=== PATIENT | female | born 1990 | race Caucasian/White ===

== ENCOUNTER 2018-02-12 11:11 | Outpatient (CLI) | payer MEDICAID, SELFPAY ==
[2018-02-12 11:28] VITALS: BMI 28.3
[2018-02-12 11:30] VITALS: BP 136/60; PULSE 68; RESP 16; TEMP 36.9; O2SAT 98
--- NOTE | 2018-02-12 11:34 | PC.NURSE ---
Patient here for outpatient antibiotic and steroid shot.
== END 2018-02-12 11:34 | disposition home or self-care (01) ==
PROVIDERS: PCP Family Medicine; Visit Provider Nurse Practitioner
DX: J06.9 Acute upper respiratory infection, unspecified (principal)

== ENCOUNTER → 2018-07-20 14:30 | Outpatient (CLI) | payer MEDICAID, SELFPAY ==
[2018-07-20 14:41] VITALS: BMI 32.9
== END ==
PROVIDERS: PCP Nurse Practitioner Family; Visit Provider Nurse Practitioner Family
DX: J06.9 Acute upper respiratory infection, unspecified (principal)

== ENCOUNTER → 2018-08-25 14:32 | Outpatient (CLI) | payer MEDICAID, SELFPAY ==
[2018-08-25 15:01] LABS: Free T4 (Free Thyroxine) 0.97 ng/dl (0.76-1.46)
== END ==
PROVIDERS: Visit Provider Physician Assistant
DX: R79.89 Other specified abnormal findings of blood chemistry (principal)
CPT/HCPCS: 84439

== ENCOUNTER → 2019-03-01 09:58 | Outpatient (CLI) | payer OTHER, SELFPAY ==
--- NOTE | 2019-03-01 10:05 | CA_ITS ---
APPROVED REPORT Kiln Firer: Jennifer Hendrickson RVT Laterality: Bilateral Study Quality: Excellent Indications: Near syncope when pt laughs Doppler Spectral Velocity Analysis ECA (R) 81.50/15.50 cm/s ECA (L) 82.90/15.00 cm/s dICA (R) 95.40/40.30 cm/s dICA (L) 88.70/34.70 cm/s Woody (R) 91.80/35.20 cm/s Woody (L) 77.70/33.80 cm/s pICA (R) 101.00/40.80 cm/s pICA (L) 92.80/33.60 cm/s dCCA (R) 82.30/25.40 cm/s dCCA (L) 69.20/26.70 cm/s pCCA (R) 106.40/22.10 cm/s pCCA (L) 93.00/27.60 cm/s Vert (R) 55.50/15.10 cm/s Vert (L) 52.50/17.80 cm/s ICA/CCA 1.23 ICA/CCA 1.34 Findings Study suggests normal bilateral internal carotid arteries. Antegrade flow seen bilateral vertebral arteries. Conclusion No increased velocities to suggest hemodynamically significant stenosis in either internal carotid artery. Electronically signed by : Vinayak Haney MD 03/02/2019 17:43:50
--- NOTE | 2019-03-01 10:32 | US_ITS ---
PROCEDURE: US THYROID CLINICAL INDICATION: THYROMEGALY Elevated thyroid levels COMPARISON: No exams were available for comparison FINDINGS: Right lobe: The right lobe is 3.7 x 1.1 x 2.0 cm. There is a ill-defined area of decreased echogenicity in the mid aspect of the right lobe at 1.8 x 0.9 cm. There is an internal area of coarse calcification. Left lobe: 3.6 x 0.9 x 1.2 cm with heterogeneous echogenicity Isthmus: . unremarkable Additional findings: IMPRESSION: Ill-defined hypoechoic nodule mid aspect right lobe of the thyroid gland with coarse calcification. This is not well-defined and has a suspicious appearance. Suggest repeat exam with physician supervision and fine-needle aspiration at the same setting if nodule persists and can be redemonstrated on repeat exam. Dictated by: Vinayak Haney MD 03/01/2019 19:49 Electronically signed by Vinayak Haney MD in [place] 03/01/2019 19:50
== END ==
PROVIDERS: PCP Family Medicine; Referring Provider Physician Assistant; Visit Provider Physician Assistant
DX: E01.0 Iodine-deficiency related diffuse (endemic) goiter (principal); R55 Syncope and collapse
CPT/HCPCS: 76536; 93880

== ENCOUNTER → 2019-03-07 16:37 | Outpatient (CLI) | payer OTHER, SELFPAY ==
[2019-03-07 18:37] LABS: Calcium 8.3 mg/dL (8.5-10.1); Free T4 (Free Thyroxine) 0.94 ng/dl (0.76-1.46); Thyroid Stimulating Hormone 5.49 uIU/ml (0.358-3.740)
[2019-03-10 11:06] LABS: Thyroid Peroxidase Antibodies 178 IU/mL (0-34)
[2019-03-11 08:27] LABS: Calcitonin <2.0 pg/mL (0.0-5.0); Thyroid Stimulating Immunoglob <0.10 IU/L (0.00-0.55)
== END ==
PROVIDERS: Visit Provider Otolaryngology
DX: E04.1 Nontoxic single thyroid nodule (principal)
CPT/HCPCS: 36415; 82308; 82310; 84439; 84443; 84445; 86376

== ENCOUNTER → 2019-03-09 12:41 | Outpatient (CLI) | payer OTHER, SELFPAY ==
--- NOTE | 2019-03-09 | CA_ITS ---
APPROVED REPORT EXAM: Comprehensive 2D, Doppler, and color-flow Echocardiogram Salvage Engineering Technician: Darcy Cruz RT(R) Ht: 5 ft 4 in Wt: 203lbs BSA: 1.97 BP: 112/68 mmHg Indications: ex smoker, near syncope, palpitations, fatigue, family hx of heart disease. 2D Dimensions Aortic Root 2.40 cm F: 2.7 - 3.3 Left Atrium 3.40 cm F: 2.7 - 3.8 M-Mode Dimensions RVDd 1.61 cm (0.9-2.6) LVDd 4.27 cm (3.5-5.7) LVDs 2.94 cm (3.5-5.7) IVSd 0.68 cm (0.6-1.1) PWd 0.83 cm (0.6-1.1) EF (Teich) 59.20% FS 31.10% EDV (Teich) 81.70 mL ESV (Teich) 33.30 mL LV Diastology E/A Ratio 1.29 Mitral Valve MV A Velocity 61.00 (40-130 cm/s) Left Ventricle Left atrium normal size, left ventricle is normal size, there is no concentric left ventricular hypertrophy, visually estimated ejection fraction 55% with no regional wall motion abnormality, diastolic parameters are within normal range. Right Ventricle Right atrium and right ventricular normal size and contractility. Aortic Valve Aortic valve is grossly normal. Mitral Valve Mitral valve is grossly normal, there is mild mitral regurgitation. Tricuspid Valve Tricuspid valve is grossly normal, there is mild tricuspid regurgitation. Pulmonic Valve Pulmonic valve is poorly visualized. Great Vessels Aortic root is normal size. Pericardium No significant pericardial effusion noted. Conclusion 1. Normal left ventricular size, preserved left ventricular systolic function, visually estimated ejection fraction 55% with no regional wall motion abnormality, diastolic parameters are within normal range. 2. Mild mitral and tricuspid regurgitation 3. No significant pericardial effusion noted. Electronically signed by : Ulises Pierce, 03/11/2019 13:48:11
== END ==
PROVIDERS: PCP Family Medicine; Visit Provider Physician Assistant
DX: R55 Syncope and collapse (principal)
CPT/HCPCS: 93306

== ENCOUNTER → 2019-03-22 12:47 | Outpatient (CLI) | payer OTHER, SELFPAY ==
--- NOTE | 2019-03-22 12:49 | US_ITS ---
PROCEDURE: US THYROID CLINICAL INDICATION: Follow-up abnormal thyroid ultrasound. COMPARISON: US THYROID from 03/01/2019 FINDINGS: The patient was scheduled for a thyroid FNA if the nodule could be redo click aided. Intensive ultrasound interrogation performed showing a small hyperechoic area in the mid aspect of the right lobe. There is some slight decreased echogenicity in this area however, a discrete nodule is not identified. Therefore, a biopsy could not be performed as no definite nodule was identified.. IMPRESSION: No discrete nodule apparent. There is some heterogeneous echogenicity in the mid aspect of the right lobe but without definite margins and is not readily apparent in both longitudinal and transverse images. Recommend six-month follow-up. Dictated by: Vinayak Haney MD 03/22/2019 18:08 Electronically signed by Vinayak Haney MD in [place] 03/22/2019 18:08
== END ==
PROVIDERS: PCP Family Medicine; Visit Provider Otolaryngology
DX: E04.1 Nontoxic single thyroid nodule (principal)
CPT/HCPCS: 76536

== ENCOUNTER → 2019-07-07 16:28 | Outpatient (CLI) | payer OTHER, SELFPAY ==
[2019-07-07 16:50] LABS: Basophils # 0.1 K/mm3 (0-0.2); Basophils % 0.5 % (0.1-2.0); Eosinophils # 0.2 K/mm3 (0.0-0.4); Eosinophils % 1.5 % (0.1-12.0); Hematocrit 37.9 % (37.0-47.0); Lymphocytes # 3.5 K/mm3 (0.7-4.5); Lymphocytes % 31.5 % (10-50); Mean Corpuscular HGB Conc 31.8 g/dL (31.8-35.4); Mean Corpuscular Hemoglobin 24.6 pg (27.0-31.2); Mean Corpuscular Volume 77.4 fl (81-99); Mean Platelet Volume 7.9 fl (7.4-10.4); Monocytes # 0.4 K/mm3 (0.1-1.0); Neutrophils # 6.9 K/mm3 (1.8-7.8); Neutrophils % 62.4 % (37.0-80.0); Platelet Count 266 K/mm3 (142-424); Red Blood Count 4.89 M/mm3 (4.20-5.40)
[2019-07-07 17:29] LABS: Alanine Aminotransferase 16 U/L (12-78); Albumin Level 4.4 g/dl (3.5-5.0); Albumin/Globulin Ratio 1.4 (1.1-1.8); Alkaline Phosphatase 53 U/L (38-126); Aspartate Amino Transferase 21 U/L (14-36); Bilirubin,Total 0.2 mg/dl (0.2-1.3); Blood Urea Nitrogen 12 mg/dl (7-17); Calcium 9.4 mg/dl (8.4-10.2); Carbon Dioxide 26 mmol/L (22.0-30.0); Chloride 103 mmol/L (98-107); Estimated Glomerular Filt Rate 98 ml/min (>60); GFR (African American) 119 ML/MIN (>60); Globulin 3.1 g/dL (1.3-3.2); Glucose 75 mg/dl (74-100); Sodium 136 mmol/L (136-145); Total Protein,Serum 7.5 g/dl (6.3-8.2)
[2019-07-07 18:00] LABS: Thyroid Stimulating Hormone 5.06 uIU/mL (0.465-4.68)
[2019-07-07 18:07] LABS: Hemoglobin A1C 5.4 % (4.0-6.0)
== END ==
PROVIDERS: Visit Provider Internal Medicine Adolescent Medicine
DX: E03.9 Hypothyroidism, unspecified (principal); R53.83 Other fatigue
CPT/HCPCS: 36415; 80053; 83036; 84443; 85025

== ENCOUNTER → 2019-08-05 10:20 | Outpatient (CLI) | payer OTHER, SELFPAY ==
--- NOTE | 2019-08-05 10:23 | US_ITS ---
PROCEDURE: US THYROID CLINICAL INDICATION: ACQUIRED HYPOTHYROIDISM COMPARISON: US THYROID from 03/22/2019 FINDINGS: Right lobe: 1.0 x 3.7 x 1.5 centimeters Left lobe: 0.9 x 3.7 x 1.1 centimeter Isthmus: 4.1 millimeters Additional findings: There are 2 separate hypoechoic areas within the right thyroid lobe. They are best seen on the sagittal images and are not confirmed with certainty as true nodules on the transverse images. Focus in the mid right thyroid lobe with some internal echogenicity likely calcification is noted measuring 6.0 x 6.2 millimeters. Additionally an area of hypoechogenicity in the anterior inferior right thyroid 4.8 x 5.2 millimeters is noted. There is a relatively heterogeneous left thyroid lobe without a discrete nodule. Continued follow-up is therefore recommended. IMPRESSION: Heterogeneous thyroid with dystrophic calcification in the mid right thyroid lobe similar to previous exam 03/22/2019. A discrete nodule is not confirmed in 2 orthogonal views. Dictated by: Vaughn Scott 08/05/2019 13:18 Electronically signed by Vaughn Scott in [place] 08/05/2019 13:18
== END ==
PROVIDERS: PCP Family Medicine; Visit Provider Internal Medicine Adolescent Medicine
DX: E03.9 Hypothyroidism, unspecified (principal)
CPT/HCPCS: 76536

== ENCOUNTER → 2019-08-24 08:43 | Outpatient (CLI) | payer OTHER, SELFPAY ==
[2019-08-24 09:35] LABS: Basophils # 0.1 K/mm3 (0-0.2); Basophils % 0.6 % (0.1-2.0); Eosinophils # 0.1 K/mm3 (0.0-0.4); Eosinophils % 0.7 % (0.1-12.0); Hemoglobin 13.1 g/dL (12.2-16.2); Lymphocytes # 3.4 K/mm3 (0.7-4.5); Lymphocytes % 32.7 % (10-50); Mean Corpuscular Hemoglobin 25.5 pg (27.0-31.2); Mean Corpuscular Volume 79.9 fl (81-99); Mean Platelet Volume 7.9 fl (7.4-10.4); Monocytes # 0.5 K/mm3 (0.1-1.0); Monocytes % 4.4 % (1.7-9.3); Neutrophils # 6.4 K/mm3 (1.8-7.8); Neutrophils % 61.6 % (37.0-80.0); Platelet Count 222 K/mm3 (142-424); Red Blood Count 5.14 M/mm3 (4.20-5.40); Red Cell Distribution Width 16.5 % (11.5-17.5); White Blood Count 10.4 K/mm3 (4.8-10.8)
[2019-08-24 11:34] LABS: Triiodothryronine (T3) Uptake 33 % (23.5-40.5)
[2019-08-24 11:35] LABS: Free Thyroxine Index 4.7 ug/dL (5.93-13.13); T4 (Thyroxine) 14.3 ug/dl (5.53-11.0)
[2019-08-24 11:48] LABS: Thyroid Stimulating Hormone 0.18 uIU/mL (0.465-4.68)
== END ==
PROVIDERS: Visit Provider Internal Medicine Adolescent Medicine
DX: E03.9 Hypothyroidism, unspecified (principal); D50.9 Iron deficiency anemia, unspecified
CPT/HCPCS: 36415; 84436; 84443; 84479; 85025

== ENCOUNTER → 2019-10-15 09:36 | Outpatient (CLI) | payer OTHER, BC, SELFPAY ==
[2019-10-15 10:43] LABS: HCG Qualitative, Serum Negative (Negative)
== END ==
PROVIDERS: Visit Provider Internal Medicine Adolescent Medicine
DX: N91.2 Amenorrhea, unspecified (principal)
CPT/HCPCS: 36415; 84703

== ENCOUNTER → 2020-03-08 07:22 | Outpatient (CLI) | payer OTHER, SELFPAY ==
--- NOTE | 2020-03-08 07:58 | US_ITS ---
PROCEDURE: US THYROID CLINICAL INDICATION: THYROID NODULE COMPARISON: US US THYROID from 08/05/2019 FINDINGS: Right lobe: 0.9cm x 3.7cm x 1.6cm Left lobe: 0.8cm x 3.6cm x 1.1cm Isthmus: The isthmus is thickened at 4 mm. There is heterogeneous echogenicity bilaterally. A 6 mm ill-defined hypoechoic nodules present in the upper pole on the right unchanged. There is a central coarse calcification. In the lower pole on the right there is an area of slight heterogeneous decreased echogenicity at 5 mm unchanged. Additional findings: IMPRESSION: Overall no significant change in the questionable 2 nodular areas of the right lobe of the thyroid gland 1 containing central coarse calcification. Continued six-month follow-up suggested to confirm 1 year stability Dictated by: Vinayak Haney MD 03/09/2020 08:15 Vinayak Haney MD in [place] 03/09/2020 08:15
== END ==
PROVIDERS: PCP Internal Medicine Adolescent Medicine; Visit Provider Internal Medicine Adolescent Medicine
DX: E04.1 Nontoxic single thyroid nodule (principal)
CPT/HCPCS: 76536

== ENCOUNTER → 2020-03-17 11:26 | Outpatient (CLI) | payer OTHER, SELFPAY ==
[2020-03-17 11:31] LABS: Adenovirus,PCR Not Detected (NotDetected); Bordetella Pertussis Not Detected (NotDetected); Chlamydophila Pneumoniae, PCR Not Detected (NotDetected); Coronavirus 19, PCR Not Detected (NotDetected); Coronavirus 229E Not Detected (NotDetected); Coronavirus NL63 Not Detected (NotDetected); Coronavirus OC43 Not Detected (NotDetected); Coronovirus HKU1,PCR Not Detected (NotDetected); Human Metapneumovirus Not Detected (NotDetected); Influenza A, PCR Not Detected (NotDetected); Influenza AH1, 2009 Not Detected (NotDetected); Influenza AH1, PCR Not Detected (NotDetected); Influenza AH3,PCR Not Detected (NotDetected); Influenza B, PCR Not Detected (NotDetected); Mycoplasma Pneumoniae, PCR Not Detected (NotDetected); Parainfluenza 1, PCR Not Detected (NotDetected); Parainfluenza 2, PCR Not Detected (NotDetected); Parainfluenza 3, PCR Not Detected (NotDetected); Parainfluenza 4, PCR Not Detected (NotDetected); Respiratory Syncytial Virus Not Detected (NotDetected)
[2020-03-17 13:12] LABS: Rhinovirus/Enterovirus Detected (NotDetected)
== END ==
PROVIDERS: Visit Provider Internal Medicine Adolescent Medicine
DX: Z03.818 Encounter for observation for suspected exposure to other biological agents ruled out (principal); R05 Cough; B34.1 Enterovirus infection, unspecified
CPT/HCPCS: 87581; 87633; 87798

== ENCOUNTER → 2020-08-15 13:18 | Outpatient (CLI) | payer OTHER, SELFPAY | PROVIDERS: PCP Internal Medicine Adolescent Medicine; Visit Provider Nurse Practitioner Family | DX: Z20.822 Contact with and (suspected) exposure to COVID-19 (principal) | CPT/HCPCS: U0003 ==

== ENCOUNTER 2020-10-08 12:58 | Emergency (ER) | payer OTHER, SELFPAY ==
[2020-10-08 13:12] VITALS: BP 131/86; PULSE 121; RESP 21; TEMP 37.2; O2SAT 99; BMI 32.9
--- NOTE | 2020-10-08 13:40 | HMH.EDUTC ---
[facility] – [place] Disposition Clinical Impression: URI (upper respiratory infection) Qualifiers: URI type: unspecified URI Qualified Code(s): J06.9 - Acute upper respiratory infection, unspecified Disposition: Home, Self-Care Condition on Discharge: Good Instructions: Sore Throat, Sinusitis Additional Instructions: *Monitor Temp, Over the counter Motrin or Tylenol as directed/as needed Tylenol every 4 hours and Motrin every 6 hours (as long as your family doctor has told you that you can take it) for fever or pain. and straight to ER if unable to lower temp less than 101.0 after medication given *Warm salt water gargles may help to soothe the throat *Throat Lozenges *Warm fluids like tea with honey may help to soothe the throat *Sleep elevated *Humidifier/Vaporizer Your throat swab was sent for culture. Those results are typically sent to your primary care. Be sure to follow up in 2-3 days with your family doctor/primary care physician if no improvement so they can review those result and treat if necessary. If you don?t have a primary care doctor, I recommend you get one but in the mean time, you will have to return to a walk in clinic Follow up IMMEDIATELY for new or worsening symptoms or no Noticeable improvement over the next 48-72 hours. 911 for difficulty breathing or swallowing You were tested for today for COVID19 your test result should be back in the next 24-48 hours, you may call to the [facility] to see if your test results are back in the next 48 hours [phone] [facility] hours are 9am-9pm You was given a handout with instructions for Self Quarantine and Self isolation for while you wait on test results and what to do if they are positive If you are positive the Health Dept will be contacting you also Referrals: Mick Cespedes MD [Primary Care Provider] - As needed Medical Decision Making - Epifanio Inquiry Pt receiving controlled substance: No Epifanio was queried for this patient: No Vital Signs: 10/08/20 13:12 10/08/20 14:05 Temperature 98.9 F 97.8 F Temperature Source Oral Pulse Rate 89 Pulse Rate [Right] 121 H Respiratory Rate 21 21 Blood Pressure 131/80 Blood Pressure [Right Arm] 131/86 Blood Pressure Mean [Right Arm] 101 Blood Pressure Source [Right Arm] Automatic Cuff Blood Pressure Position [Right Arm] Sitting 02 Sat by Pulse Oximetry 99 - Lab Data Lab results reviewed: Yes: I reviewed the patient's lab results. Lab Results 10/08/20 13:08: Influenza Type A Ag Negative, Influenza Type B Ag Negative 10/08/20 13:08: Strep Scn Rapid Clinic Negative Orders (Tests/Meds): ED MEDICATIONS Discontinued Medications Generic Name Dose Route Start Last Admin Trade Name Shawn PRN Reason Stop Dose Admin Ceftriaxone Sodium 1 gm 10/08/20 13:42 10/08/20 13:51 Ceftriaxone 1gm Vial IM 10/08/20 13:43 1 gm ONCE ONE Administration Protocol Lidocaine HCl 0 ml 10/08/20 13:42 10/08/20 13:51 Lidocaine 1% 5ml Pf Vial IM 10/08/20 13:43 2 ml ONCE ONE Administration Methylprednisolone Sodium Succinate 125 mg 10/08/20 13:42 10/08/20 13:52 Methylprednisolone Sod Succ 125mg Vial IM 10/08/20 13:43 125 mg ONCE ONE Administration ORDERS Category Date Time Status Strep Screen Confirmation Stat Micro 10/08/20 13:08 Received Medical Decision Narrative: rechecked HR now 90 [facility] [place] HPI - General Stated complaint: body aches, chills, sore throat Time Seen by Provider: 10/08/20 13:41 Mode of Arrival: Ambulatory Source of Information: Patient Limitations: No Limitations Description of Symptoms (Recalled from Triage Doc. by RN): pt c/o body aches, chilling, sore throat and cough ongoing for three days. exposed to covid here at work on 10/05 Symptoms (Recalled from RN notes): Yes (sore throat) Resp Symptoms (Recalled from RN notes): Yes (cough) Skin Symptoms (Recalled from RN notes): No MS Symptoms (Recalled from RN notes): No Functional Status (Recalled from RN notes): n
[2020-10-08 13:42] LABS: UTC Influenza A Antigen Negative (Negative); UTC Strep Screen (Rapid) Negative (Negative)
[2020-10-08 13:43] LABS: UTC Influenza B Antigen Negative (Negative)
[2020-10-08 14:05] VITALS: BP 131/80; PULSE 89; RESP 21; TEMP 36.6
== END 2020-10-08 14:07 | disposition home or self-care (01) ==
PROVIDERS: Emergency Provider Nurse Practitioner; PCP Internal Medicine Adolescent Medicine
DX: U07.1 COVID-19 (principal); J06.9 Acute upper respiratory infection, unspecified; K21.9 Gastro-esophageal reflux disease without esophagitis; E03.9 Hypothyroidism, unspecified
CPT/HCPCS: 87804; 87880; 96372; 99202; G0463; U0003

== ENCOUNTER → 2020-11-16 19:16 | Outpatient (CLI) | payer OTHER, SELFPAY ==
[2020-11-16 21:38] LABS: Thyroid Stimulating Hormone 4.34 uIU/mL (0.465-4.68)
== END ==
PROVIDERS: Visit Provider Internal Medicine Adolescent Medicine
DX: E03.9 Hypothyroidism, unspecified (principal)
CPT/HCPCS: 36415; 84443

== ENCOUNTER 2020-12-20 18:07 | Emergency (ER) | payer OTHER, SELFPAY ==
[2020-12-20 18:51] VITALS: BP 00/00; PULSE 0; RESP 0; TEMP -17.7; TEMP 0
== END 2020-12-20 18:51 | disposition left against medical advice (07) ==
LOC: UTC 18:12
PROVIDERS: Emergency Provider Nurse Practitioner Family; PCP Internal Medicine Adolescent Medicine
DX: Z53.21 Procedure and treatment not carried out due to patient leaving prior to being seen by health care provider (principal)

== ENCOUNTER 2021-05-02 10:34 | Emergency (ER) | payer OTHER, SELFPAY ==
[2021-05-02 12:22] VITALS: BP 113/63; PULSE 120; RESP 18; TEMP 37.2; O2SAT 97; BMI 35.5
--- NOTE | 2021-05-02 12:35 | HMH.EDUTC ---
[facility] [place] Clinical Impression: Influenza A Disposition: Home, Self-Care Condition on Discharge: Good Instructions: Sore Throat, DI for Fever (Symptom) -- Adult Additional Instructions: *Monitor Temp, Over the counter Motrin or Tylenol as directed/as needed Tylenol every 4 hours and Motrin every 6 hours (as long as your family doctor has told you that you can take it) for fever or pain. and straight to ER if unable to lower temp less than 101.0 after medication given *Warm salt water gargles may help to soothe the throat *Throat Lozenges *Warm fluids like tea with honey may help to soothe the throat *Sleep elevated *Humidifier/Vaporizer ? Start Tamiflu today if you are going to take it. Discussed risk and possible benefits. ? Too late to start Tamiflu. Most effective when started within 48 hours of symptoms onset ? Lots of rest ? Increase Fluids water, Gatorade, powerade, pedialyte,if /toddler/child ? Alternate Tylenol and / or ibuprofen as discussed for fever, aches, chills Follow up IMMEDIATELY with your family doctor for new or worsening Symptoms OR no noticeable improvement over the next 48-72 hours, 911 for difficulty or breathing ? You or your child area contagious until no fever, aches, chills for 24 hours with medication for symptoms ? Help Prevent the spread of influenza: ? Wash your hands often. Use soap and water. Wash your hands after you use the bathroom, change a child's diapers, or sneeze. Wash your hands before you prepare or eat food. Use gel hand cleanser that has 60% alcohol, when soap and water are not available. Do not touch your eyes, nose, or mouth unless you have washed your hands first. ? Cover your mouth when you sneeze or cough. Cough into a tissue or the bend of your arm. If you use a tissue, throw it away immediately and wash your hands. ? Clean shared items with a germ-killing roller cleaner. Clean table surfaces, doorknobs, and light switches. Do not share towels, silverware, and dishes with people who are sick. Wash bed sheets, towels, silverware, and dishes with soap and water. ? Wear a mask over your mouth and nose if you are sick. The face mask may help protect others from becoming infected with the flu. Wear the mask when in common areas of your home or if you seek care with a healthcare provider. ? Stay away from others if you are sick. Stay at home until 24 hours after your fever and symptoms are gone. Follow up IMMEDIATELY for new or worsening symptoms or no Noticeable improvement over the next 48-72 hours. 911 for difficulty breathing or swallowing You were tested for today for COVID19 your test result should be back in the next 24-48 hours, you may check your results on the [facility] My Health Portal if you have trouble logging on you may call You was given a handout with instructions for Self Quarantine and Self isolation for while you wait on test results and what to do if they are positive If you are positive the Health Dept will be contacting you also Make sure to take your Vitamins Vit. C Vit D and Zinc if you can take them Referrals: Mikc Cespedes MD [Primary Care Provider] - As needed Time of Disposition: 13:45 Medical Decision Making - Epifanio Inquiry Pt receiving controlled substance: No Epifanio was queried for this patient: No Vital Signs: 05/02/21 12:22 05/02/21 13:25 Temperature 98.9 F 98.9 F Temperature Source Oral Pulse Rate 120 H Pulse Rate [Left] 120 H Respiratory Rate 18 18 Blood Pressure 113/63 Blood Pressure [Right Arm] 113/63 Blood Pressure Mean [Right Arm] 79 02 Sat by Pulse Oximetry 97 - Lab Data Lab results reviewed: Yes: I reviewed the patient's lab results. Lab Results 05/02/21 12:13: SARS-CoV-2 (PCR) Not detected, Influenza A Untype (PCR) Detected A, Influenza Type B (PCR) Not detected Medical Decision Narrative: Discussed Tamiflu and patient declined [facility] [place] - General Stated complaint: cough,congestion,runny nose Time Seen by Provid
[2021-05-02 12:54] LABS: Coronavirus 19, PCR Not Detected (NotDetected); Influenza B, PCR Not Detected (NotDetected)
[2021-05-02 13:25] VITALS: BP 113/63; PULSE 120; RESP 18; TEMP 37.2
[2021-05-02 13:38] LABS: Influenza A, PCR Detected (NotDetected)
== END 2021-05-02 13:51 | disposition home or self-care (01) ==
PROVIDERS: Emergency Provider Nurse Practitioner; PCP Internal Medicine Adolescent Medicine
DX: J10.1 Influenza due to other identified influenza virus with other respiratory manifestations (principal); E03.9 Hypothyroidism, unspecified; K21.9 Gastro-esophageal reflux disease without esophagitis
CPT/HCPCS: 99202; C9803; G0463; U0003; U0005

== ENCOUNTER → 2021-08-21 09:25 | Outpatient (CLI) | payer OTHER, SELFPAY ==
[2021-08-21 10:05] LABS: Basophils # 0.1 K/mm3 (0-0.2); Basophils % 1.5 % (0.1-2.0); Eosinophils # 0.3 K/mm3 (0.0-0.4); Eosinophils % 3.3 % (0.1-12.0); Hematocrit 42.4 % (37.0-47.0); Hemoglobin 13.6 g/dL (12.2-16.2); Lymphocytes % 38.6 % (10-50); Mean Corpuscular Hemoglobin 28.5 pg (27.0-31.2); Mean Platelet Volume 8.4 fl (7.4-10.4); Monocytes # 0.3 K/mm3 (0.1-1.0); Monocytes % 4.2 % (1.7-9.3); Neutrophils % 52.3 % (37.0-80.0); Platelet Count 268 K/mm3 (142-424); Red Blood Count 4.77 M/mm3 (4.20-5.40); Red Cell Distribution Width 13.9 % (11.5-17.5); White Blood Count 7.7 K/mm3 (4.8-10.8)
[2021-08-21 10:58] LABS: Thyroid Stimulating Hormone 3.86 uIU/mL (0.465-4.68)
== END ==
PROVIDERS: Visit Provider Internal Medicine Adolescent Medicine
DX: E03.9 Hypothyroidism, unspecified (principal); D50.9 Iron deficiency anemia, unspecified
CPT/HCPCS: 36415; 84443; 85025

== ENCOUNTER 2021-12-09 08:35 | Emergency (ER) | payer OTHER, SELFPAY ==
[2021-12-09 08:53] VITALS: BP 142/93; PULSE 96; RESP 16; TEMP 36.8; O2SAT 98; BMI 39.9
--- NOTE | 2021-12-09 09:16 | HMH.EDUTC ---
[facility] [place] Disposition Clinical Impression: Acute bronchitis Qualifiers: Bronchitis organism: other organism Qualified Code(s): J20.8 - Acute bronchitis due to other specified organisms Sinusitis Qualifiers: Sinusitis location: unspecified location Chronicity: acute Recurrence: non-recurrent Qualified Code(s): J01.90 - Acute sinusitis, unspecified Disposition: Home, Self-Care Condition on Discharge: Good Instructions: Acute Bronchitis, DI for Sinusitis, DI for Acute Bronchitis Additional Instructions: Drink plenty of fluids. Take tylenol or ibuprofen for pain or fever. Take the medications as directed. Follow up with your regular doctor. GO TO THE ER FOR ANY WORSENING SYMPTOMS Don't start the oral steroids until tomorrow, since you had the shot here today. Prescriptions: Brompheniramine/Pseudoephed/Dm [Bromfed Dm Cough Syrup] 5 ml PO Q6HP PRN #240 ml PRN Reason: Cough Transmission Status: Received by [facility] Benzonatate [Benzonatate 100mg cap] 100 mg PO TIDP PRN #30 cap PRN Reason: Cough Transmission Status: Received by [facility] methylPREDNISolone [Medrol] 4 mg PO DIRECTED 6 Days #21 packet Transmission Status: Received by [facility] Referrals: Josias Huffman MD [Primary Care Provider] - Forms: Work/School Release Time of Disposition: 09: Medical Decision Making - Medical Records Medical records reviewed: No: I reviewed the patient's medical records. - Epifanio Inquiry Pt receiving controlled substance: No Vital Signs: 12/09/21 08:53 12/09/21 09:33 Temperature 98.3 F 98.3 F Temperature Source Oral Pulse Rate 96 H Pulse Rate [Left] 96 H Respiratory Rate 16 16 Blood Pressure 142/93 H Blood Pressure [Right Arm] 142/93 H Blood Pressure Mean [Right Arm] 109 02 Sat by Pulse Oximetry 98 Orders (Tests/Meds): ED MEDICATIONS Discontinued Medications Generic Name Dose Route Start Last Admin Trade Name Freq PRN Reason Stop Dose Admin Ceftriaxone Sodium 1 gm 12/09/21 09:14 12/09/21 09:26 Ceftriaxone 1gm Vial IM 12/09/21 09:15 1 gm ONCE ONE Administration Lidocaine HCl 0 ml 12/09/21 09:14 12/09/21 09:26 Lidocaine 1% 5ml Pf Vial IM 12/09/21 09:15 2 ml ONCE ONE Administration Methylprednisolone Sodium Succinate 125 mg 12/09/21 09:14 12/09/21 09:26 Methylprednisolone Sod Succ 125mg Vial IM 12/09/21 09:15 125 mg ONCE ONE Administration [facility] [place] HPI - General Stated complaint: Sinus, nausea Time Seen by Provider: 12/09/21 09:16 Mode of Arrival: Ambulatory Source of Information: Patient Limitations: No Limitations Description of Symptoms (Recalled from Triage Doc. by RN): patient comes in with complaints of cough, nasal drainage, congestion. symptoms began 4 days ago. HEENT Symptoms (Recalled from RN notes): Yes Resp Symptoms (Recalled from RN notes): Yes Skin Symptoms (Recalled from RN notes): No MS Symptoms (Recalled from RN notes): No Functional Status (Recalled from RN notes): n/a - History of Present Illness Provider Complaint: She states that for the past 4 days she has had chest and sinus congestion. She denies any fever. She denies any covid-19 exposure and she refuses any testing today. - Related Data Home Medications Medication Instructions Recorded Confirmed ferrous sulfate 325 mg (65 mg 325 mg PO DAILY 08/15/20 08/15/20 iron) tablet levothyroxine 88 mcg tablet 88 mcg PO DAILY tab 08/15/20 08/15/20 omeprazole 40 mg capsule,delayed 40 mg PO DAILY cap 08/15/20 08/15/20 release phentermine 37.5 mg capsule 37.5 mg PO DAILY 08/15/20 08/15/20 vortioxetine 20 mg tablet 20 mg PO DAILY tab 08/15/20 08/15/20 Previous Rx's Medication Instructions Recorded Azithromycin [Z-Aquiles 250mg Tab*] 250 mg PO UD DOSE PK #6 tab 12/20/20 methylPREDNISolone [Medrol] 4 mg PO DIRECTED 6 Days #21 12/20/20 tab.ds.pk Benzonatate [Benzonatate 100mg 100 mg PO TIDP
[2021-12-09 09:33] VITALS: BP 142/93; PULSE 96; RESP 16; TEMP 36.8
== END 2021-12-09 09:33 | disposition home or self-care (01) ==
PROVIDERS: Emergency Provider Nurse Practitioner Family; PCP Internal Medicine Adolescent Medicine
DX: J20.8 Acute bronchitis due to other specified organisms (principal); J01.90 Acute sinusitis, unspecified; R11.0 Nausea; K21.9 Gastro-esophageal reflux disease without esophagitis; E03.9 Hypothyroidism, unspecified; R09.89 Other specified symptoms and signs involving the circulatory and respiratory systems; F17.210 Nicotine dependence, cigarettes, uncomplicated; Z79.52 Long term (current) use of systemic steroids; Z82.49 Family history of ischemic heart disease and other diseases of the circulatory system; Z83.438 Family history of other disorder of lipoprotein metabolism and other lipidemia
CPT/HCPCS: 96372; 99213; G0463; J0696

== ENCOUNTER → 2022-03-07 10:57 | Outpatient (CLI) | payer OTHER, SELFPAY ==
[2022-03-07 11:48] LABS: Basophils # 0.1 K/mm3 (0-0.2); Basophils % 1.1 % (0.1-2.0); Eosinophils # 0.2 K/mm3 (0.0-0.4); Eosinophils % 2.5 % (0.1-12.0); Hematocrit 43.8 % (37.0-47.0); Hemoglobin 13.8 g/dL (12.2-16.2); Mean Corpuscular HGB Conc 31.5 g/dL (31.8-35.4); Mean Corpuscular Hemoglobin 27.9 pg (27.0-31.2); Mean Corpuscular Volume 88.7 fl (81-99); Mean Platelet Volume 8.1 fl (7.4-10.4); Monocytes # 0.4 K/mm3 (0.1-1.0); Monocytes % 4.3 % (1.7-9.3); Neutrophils # 4.5 K/mm3 (1.8-7.8); Neutrophils % 55.1 % (37.0-80.0); Platelet Count 280 K/mm3 (142-424); Red Blood Count 4.93 M/mm3 (4.20-5.40); Red Cell Distribution Width 13.6 % (11.5-17.5); White Blood Count 8.1 K/mm3 (4.8-10.8)
[2022-03-07 12:01] LABS: Alanine Aminotransferase 25 U/L (12-78); Albumin Level 4.2 g/dl (3.5-5.0); Albumin/Globulin Ratio 1.5 (1.1-1.8); Alkaline Phosphatase 74 U/L (38-126); Anion Gap 15.6 mEq/L (5-15); Aspartate Amino Transferase 25 U/L (14-36); Bilirubin,Total 0.4 mg/dl (0.2-1.3); Blood Urea Nitrogen 18 mg/dl (7-17); Calcium 9.5 mg/dl (8.4-10.2); Carbon Dioxide 26 mmol/L (22.0-30.0); Chloride 103 mmol/L (98-107); Estimated Glomerular Filt Rate 96 ml/min (>60); GFR (African American) 117 ML/MIN (>60); Globulin 2.8 g/dL (1.3-3.2); Glucose 98 mg/dl (74-100); Potassium 4.6 mmoL/L (3.5-5.1); Sodium 140 mmol/L (136-145)
[2022-03-07 12:19] LABS: HCG,Quantitative < 2 mIU/ml (0-5.42)
== END ==
PROVIDERS: PCP Internal Medicine Adolescent Medicine; Visit Provider Obstetrics & Gynecology
DX: Z30.09 Encounter for other general counseling and advice on contraception (principal)
CPT/HCPCS: 36415; 80053; 84702; 85025

== ENCOUNTER 2022-03-10 06:42 | Day surgery (SDC) | payer OTHER, SELFPAY ==
[2022-03-06 13:37] VITALS: BMI 37.2
[2022-03-10] VITALS (11 sets, daily range): BP systolic 106–128; BP diastolic 59–84; PULSE 75–99; RESP 10–18; TEMP 36.1–43; O2SAT 92–97
--- NOTE | 2022-03-10 09:26 | P.PNANES_ITS ---
[facility] Anesthesia Record Part I Anesthesia Record I Intake, IV Amount: 400 Estimated blood loss (mL): 10 Urine output (mL): 0 Blood Products used (#): none Blood Pressure: 121/80 SaO2: 93 Pulse Rate: 89 Respiratory Rate: 10 Temperature: 97.0 F Patient is:: Drowsy Stable to PACU at:: 09:16
--- NOTE | 2022-03-10 09:30 | EXP.OP.NOTE ---
Date of procedure: 03/10/22 Pre-op Diagnosis:: 1. Complete family status, desires permanent sterilization 2. Removal of Paragard IUD Post-op Diagnosis:: 1. Complete family status, desires permanent sterilization 2. Removal of Paragard IUD 3. Intra-abdominal/intra-pelvic adhesions Procedure performed:: 1. Removal of Pargard IUD 2. Laparoscopy 3. Lysis of adhesions, approximately 15 minutes 4. Right salpingectomy 5. Left partial salpingectomy Surgeon:: Brigid Gillespie DO Direct Support Professional Caregiver(s):: N/a ORCHID TRANSPLANTER:: Addison Baker Anesthesia: GETAries Estimated blood loss (mL): 10 Clinical Note:: Ms Alessandra Leonard is a 31 yo [id number] who presents to [facility] for scheduled procedure. She is complete with childbearing and desires permanent sterilization. She currently has Paragard IUD in place. She would like to have IUD removed. History of x 3. She is feeling well today. No complaints or concerns. Operative findings:: 1. On bimanual exam, uterus normal size, midline and anteverted 2. On laparoscopic exam, omentum adhered to anterior abdominal wall from umbilicus to uterus. Left fallopian tube adhered to left ovary and pelvic side wall. Thick adhesions between uterus, bladder and anterior pelvic wall. 3. Grossly normal appearing bilateral ovaries 4. Grossly normal appearing liver, gallbladder and stomach Operative note:: Risks, benefits and alternatives were discussed with the patient. Risks include but are not limited to bleeding, infection, damage to adjacent structures and VTE. Patient voiced understanding and agreed to proceed with surgery. She was wheeled back to the operating room and placed under general anesthesia without difficulty. She was placed in the dorsal lithotomy position and prepped and draped in normal sterile fashion. A straight catheter was used to drain the bladder. A bimanual exam was performed. A weighted Auvard was placed in the vaginal vault. A single tooth tenaculum was placed on the anterior lip of the cervix. Ringed forceps were used to grasp the IUD strings and IUD was removed without difficulty. [place] manipulator was inserted into the cervical canal and attached to the tenaculum. Weighted Auvard was removed from the vagina. Attention was then drawn to the abdomen. A 2cm infraumbilical incision was made. Veress needle was tested and inserted intraabdominally without difficulty. Opening pressure of 7 mm Hg. Abdomen was then insulflated to 15 mm Hg. Trocar was inserted through infraumbilical incision and laparoscope was inserted. Abdomen was viewed in its entirety. See findings above. Pictures were taken. Left lower quadrant was transilluminated. 5 mm incision was made and 5 mm disposable blunt trocar was inserted into the abdomen under direct laparoscopic visualization. Trocar was removed and sleeve was left in place. Right lower quadrant was transilluminated. A 5 mm incision was made and a 5 mm disposable trocar was inserted into the abdomen under direct laparoscopic visualization. Obturator was removed and sleeve was left in place. Left fallopian tube was adhered to pelvic side wall and left ovary. Attempted to dissect tube from pelvic side wall wihtout success. Small amount of bleeding present. Decision was made to proceed with left partial salpingectomy. The Harmonic was used to excise a 2 cm portion of left fallopian tube between mid portion of tube and cornua. Fimbriated end of right fallopian tube was grasped. Harmonic was used to transect the right mesosalpinx and fallopian tube at uterine cornua. Bilateral fallopian tubes will be sent to pathology for review. Small amount of oozing at left fimbriated end of fallopian tube. Pelvic was irrigated. Teresa was applied over portion of left fallopian tube left in situ. Hemostasis was noted. Left lower quadrant trocar was removed under direct laparoscopic visualization. Right lower quadrant trocar was removed under direct laparoscopic visualization. Pneumoperitoneum was released into the atmosphere. Infraumb
--- NOTE | 2022-03-10 10:27 | P.PNANES_ITS ---
[facility] Anesthesia Record Part II Anesthesia Record Part II Discharge Time: 09:46 Destination: Surgical Day Care (OP Surgery) PACU nurse assessment reviewed?: Yes Patient Condition:: Good Anesthesia Complications:: None Swallowing reflex intact?: Yes Cyanosis?: No Blood Pressure: 112/59 Pulse Rate: 90 Temperature: 97.4 F Mental Status: Alert & Oriented Pain level:: 0 Nausea and/or vomitting:: None Intake, IV Amount: 0
== END 2022-03-10 10:20 | disposition home or self-care (01) ==
PROVIDERS: PCP Internal Medicine Adolescent Medicine; Visit Provider Obstetrics & Gynecology
PROC: (CPT 58700; principal; 2022-03-10 08:15)
DX: Z30.2 Encounter for sterilization (principal); Z30.432 Encounter for removal of intrauterine contraceptive device; N73.6 Female pelvic peritoneal adhesions (postinfective); Z72.0 Tobacco use; Z79.899 Other long term (current) drug therapy
CPT/HCPCS: 58700; 58301; 58660; J2405; J2704

== ENCOUNTER → 2022-04-15 07:19 | Outpatient (CLI) | payer OTHER, SELFPAY ==
[2022-04-15 08:31] LABS: Basophils # 0.1 K/mm3 (0-0.2); Basophils % 1.3 % (0.1-2.0); Eosinophils # 0.2 K/mm3 (0.0-0.4); Eosinophils % 2.6 % (0.1-12.0); Hematocrit 44.1 % (37.0-47.0); Hemoglobin 14.3 g/dL (12.2-16.2); Lymphocytes # 3.7 K/mm3 (0.7-4.5); Lymphocytes % 39.6 % (10-50); Mean Corpuscular HGB Conc 32.3 g/dL (31.8-35.4); Mean Corpuscular Volume 86.4 fl (81-99); Mean Platelet Volume 8.2 fl (7.4-10.4); Monocytes # 0.5 K/mm3 (0.1-1.0); Monocytes % 5.4 % (1.7-9.3); Neutrophils # 4.7 K/mm3 (1.8-7.8); Neutrophils % 51.2 % (37.0-80.0); Platelet Count 293 K/mm3 (142-424); Red Cell Distribution Width 13.6 % (11.5-17.5); White Blood Count 9.2 K/mm3 (4.8-10.8)
[2022-04-15 08:39] LABS: Chloride 107 mmol/L (98-107); Potassium 4.3 mmoL/L (3.5-5.1)
[2022-04-15 08:41] LABS: Blood Urea Nitrogen 20 mg/dl (7-17); Estimated Glomerular Filt Rate 72 ml/min (>60); GFR (African American) 87 ML/MIN (>60)
[2022-04-15 08:42] LABS: Alanine Aminotransferase 26 U/L (12-78); Albumin Level 4.3 g/dl (3.5-5.0); Albumin/Globulin Ratio 1.5 (1.1-1.8); Alkaline Phosphatase 71 U/L (38-126); Aspartate Amino Transferase 26 U/L (14-36); Bilirubin,Total < 0.1 mg/dl (0.2-1.3); Carbon Dioxide 23 mmol/L (22.0-30.0); Globulin 2.9 g/dL (1.3-3.2); Glucose 92 mg/dl (74-100); Total Protein,Serum 7.2 g/dl (6.3-8.2)
[2022-04-15 08:43] LABS: Calcium 9.5 mg/dl (8.4-10.2); Hemoglobin A1C 5.2 % (4.0-6.0)
[2022-04-15 09:00] LABS: Triiodothryronine (T3) Uptake 34 % (23.5-40.5)
[2022-04-15 09:01] LABS: Free Thyroxine Index 3.2 ug/dL (5.93-13.13); T4 (Thyroxine) 9.5 ug/dl (5.53-11.0)
[2022-04-15 11:09] LABS: Anion Gap 13.3 mEq/L (5-15); Sodium 139 mmol/L (136-145)
[2022-04-16 10:17] LABS: Insulin Level Total 30.2 uIU/mL (2.6-24.9)
== END ==
PROVIDERS: PCP Internal Medicine Adolescent Medicine; Visit Provider Internal Medicine Adolescent Medicine
DX: R53.83 Other fatigue (principal); R53.81 Other malaise; E66.9 Obesity, unspecified; Z68.37 Body mass index [BMI] 37.0-37.9, adult
CPT/HCPCS: 36415; 80053; 82533; 83036; 83525; 84436; 84443; 84479; 85025

== ENCOUNTER → 2022-04-22 12:34 | Outpatient (CLI) | payer OTHER, SELFPAY ==
[2022-04-22 12:38] VITALS: BMI 37.4
== END ==
PROVIDERS: PCP Internal Medicine Adolescent Medicine; Visit Provider Nurse Practitioner
DX: J06.9 Acute upper respiratory infection, unspecified (principal)
CPT/HCPCS: J0696

== ENCOUNTER 2023-05-04 10:06 | Outpatient (CLI) | payer OTHER, SELFPAY ==
[2023-05-04 10:36] LABS: Basophils # 0.1 K/mm3 (0-0.2); Basophils % 1.1 % (0.1-2.0); Eosinophils # 0.2 K/mm3 (0.0-0.4); Eosinophils % 1.7 % (0.1-12.0); Hematocrit 41.8 % (37.0-47.0); Hemoglobin 14.1 g/dL (12.2-16.2); Lymphocytes # 4.2 K/mm3 (0.7-4.5); Lymphocytes % 36.5 % (10-50); Mean Corpuscular HGB Conc 33.7 g/dL (31.8-35.4); Mean Corpuscular Hemoglobin 28.1 pg (27.0-31.2); Mean Corpuscular Volume 83.2 fl (81-99); Mean Platelet Volume 7.8 fl (7.4-10.4); Monocytes # 0.5 K/mm3 (0.1-1.0); Monocytes % 4.2 % (1.7-9.3); Neutrophils # 6.6 K/mm3 (1.8-7.8); Neutrophils % 56.4 % (37.0-80.0); Platelet Count 310 K/mm3 (142-424); Red Blood Count 5.03 M/mm3 (4.20-5.40); Red Cell Distribution Width 13.8 % (11.5-17.5); White Blood Count 11.6 K/mm3 (4.8-10.8)
[2023-05-04 10:40] LABS: Alanine Aminotransferase 45 U/L (12-78); Albumin Level 4.3 g/dl (3.5-5.0); Albumin/Globulin Ratio 1.3 (1.1-1.8); Alkaline Phosphatase 61 U/L (38-126); Anion Gap 12.8 mEq/L (5-15); Aspartate Amino Transferase 33 U/L (14-36); Bilirubin,Total 0.5 mg/dl (0.2-1.3); Blood Urea Nitrogen 16 mg/dl (7-17); Calcium 8.5 mg/dl (8.4-10.2); Carbon Dioxide 20 mmol/L (22.0-30.0); Chloride 104 mmol/L (98-107); Estimated Glomerular Filt Rate 96 ml/min (>60); GFR (African American) 116 ML/MIN (>60); Globulin 3.4 g/dL (1.3-3.2); Glucose 102 mg/dl (74-100); Potassium 3.8 mmoL/L (3.5-5.1); Sodium 133 mmol/L (136-145); Total Protein,Serum 7.7 g/dl (6.3-8.2)
[2023-05-04 11:42] LABS: Thyroid Stimulating Hormone 7.23 uIU/mL (0.465-4.68)
[2023-05-04 11:48] LABS: Hemoglobin A1C 5.1 % (4.0-6.0)
[2023-05-04 12:28] LABS: Free T4 (Free Thyroxine) 1.13 ng/dl (0.78-2.19)
== END 2023-05-04 23:59 ==
LOC: ER 10:08
PROVIDERS: Nurse Practitioner Family; PCP Internal Medicine Adolescent Medicine; Visit Provider Internal Medicine Adolescent Medicine
DX: R73.03 Prediabetes (principal); D50.9 Iron deficiency anemia, unspecified
CPT/HCPCS: 80053; 83036; 84439; 84443; 85025

== ENCOUNTER 2023-05-15 14:56 | Outpatient (CLI) | payer OTHER, SELFPAY ==
--- NOTE | 2023-05-15 15:00 | US_ITS ---
FINAL REPORT TECHNIQUE: Limited sonographic images of the thyroid were obtained. CLINICAL HISTORY: THYROID NODULE COMPARISON: 03/08/2020 FINDINGS: The right lobe of the thyroid measures 1.9 x 1.2 cm. There is a 5 x 5 x 4 mm nodule which is solid and hypoechoic with macro calcification consistent with TI-RADS category 4. Nodule previously measured 6 x 6 x 6 mm, partially improved. The left lobe of the thyroid measures 3.4 by 0.8 x 1.0 cm. No mass or nodule is identified. The isthmus measures 3 mm. IMPRESSION: Partially improved right thyroid lobe nodule. No follow-up is recommended. Reviewed, Interpreted and Dictated by Ciro Burgos III, MD Transcribed by Judith Mathis Authenticated and . [facility]
== END 2023-05-15 23:59 ==
LOC: RAD 14:56
PROVIDERS: PCP Internal Medicine Adolescent Medicine; Visit Provider Nurse Practitioner Family
DX: E04.1 Nontoxic single thyroid nodule (principal)
CPT/HCPCS: 76536

== ENCOUNTER 2023-08-02 07:08 | Emergency (ER) | payer OTHER, SELFPAY ==
[2023-08-02] VITALS (7 sets, daily range): BP systolic 85–121; BP diastolic 52–85; PULSE 69–111; RESP 14–20; TEMP 36.6–36.8; O2SAT 97–98; BMI 31.5
--- NOTE | 2023-08-02 07:20 | PC.NURSE ---
in room talking with patient at this time.
--- NOTE | 2023-08-02 07:23 | CT_ITS ---
PROCEDURE INFORMATION: Exam: CT Abdomen And Pelvis With Contrast Exam date and time: 08/02/2023 7:55 AM Age: 32 years old Clinical indication: Abdominal pain; Generalized; Prior surgery; Surgery date: 6+ months; Surgery type: C-sections x 3. Tubal ligation; Additional info: Abdominal pain, periumbilical, n/v, pain walking TECHNIQUE: Imaging protocol: Computed tomography of the abdomen and pelvis with contrast. Radiation optimization: All CT scans at this facility use at least one of these dose optimization techniques: automated exposure control; mA and/or kV adjustment per patient size (includes targeted exams where dose is matched to clinical indication); or iterative reconstruction. Contrast material: ISOVUE; Contrast volume: 75 ml; Contrast route: IV; COMPARISON: No relevant prior studies available. FINDINGS: Liver: Normal. No mass. Gallbladder and bile ducts: Normal. No calcified stones. No ductal dilation. Pancreas: Normal. No ductal dilation. Spleen: Normal. No splenomegaly. Adrenal glands: Normal. No mass. Kidneys and ureters: Normal. No hydronephrosis. Stomach and bowel: Unremarkable. No obstruction. No mucosal thickening. Appendix: No evidence of appendicitis. Intraperitoneal space: There is trace fluid in the cul-de-sac. Vasculature: Unremarkable. No abdominal aortic aneurysm. Lymph nodes: Unremarkable. No enlarged lymph nodes. Urinary bladder: Unremarkable as visualized. Reproductive: There is an involuting right ovarian follicle measuring 1.6 x 1.4 cm. Bones/joints: Unremarkable. No acute fracture. Soft tissues: Unremarkable. IMPRESSION: 1. Involuting right ovarian follicle with trace fluid in the cul-de-sac. 2. Otherwise no evidence of acute process.
[2023-08-02 07:33] LABS: Basophils # 0.2 K/mm3 (0-0.2); Basophils % 1.3 % (0.1-2.0); Eosinophils # 0.1 K/mm3 (0.0-0.4); Eosinophils % 1.2 % (0.1-12.0); Hematocrit 46.7 % (37.0-47.0); Hemoglobin 14.9 g/dL (12.2-16.2); Lymphocytes # 4.7 K/mm3 (0.7-4.5); Lymphocytes % 41.4 % (10-50); Mean Corpuscular Hemoglobin 28.3 pg (27.0-31.2); Mean Corpuscular Volume 88.6 fl (81-99); Mean Platelet Volume 7.9 fl (7.4-10.4); Monocytes # 0.5 K/mm3 (0.1-1.0); Monocytes % 4.5 % (1.7-9.3); Neutrophils # 5.8 K/mm3 (1.8-7.8); Neutrophils % 51.5 % (37.0-80.0); Platelet Count 270 K/mm3 (142-424); Red Blood Count 5.27 M/mm3 (4.20-5.40); Red Cell Distribution Width 13.9 % (11.5-17.5); White Blood Count 11.3 K/mm3 (4.8-10.8)
[2023-08-02] MEDS: ONDANSETRON 4MG/2ML VIAL 4 MG IV (07:35)
[2023-08-02] MEDS: KETOROLAC 30MG/ML VIAL 30 MG IV (07:35)
[2023-08-02 07:36] LABS: Alanine Aminotransferase 21 U/L (12-78); Albumin Level 4.4 g/dl (3.5-5.0); Albumin/Globulin Ratio 1.3 (1.1-1.8); Alkaline Phosphatase 59 U/L (38-126); Anion Gap 10.8 mEq/L (5-15); Aspartate Amino Transferase 22 U/L (14-36); Bilirubin,Total 0.5 mg/dl (0.2-1.3); Blood Urea Nitrogen 12 mg/dl (7-17); Calcium 9.5 mg/dl (8.4-10.2); Carbon Dioxide 24 mmol/L (22.0-30.0); Chloride 110 mmol/L (98-107); Creatinine Clearance Estimated 112 mL/min (50-200); Estimated Glomerular Filt Rate 72 ml/min (>60); GFR (African American) 87 ML/MIN (>60); Globulin 3.3 g/dL (1.3-3.2); Glucose 101 mg/dl (74-100); Lipase 326 U/L (23-300); Potassium 3.8 mmoL/L (3.5-5.1); Sodium 141 mmol/L (136-145); Total Protein,Serum 7.7 g/dl (6.3-8.2)
[2023-08-02] MEDS: LACTATED RINGERS 1000ML 1,000 ML 999 ML IV (07:36)
[2023-08-02 07:46] LABS: HCG Qualitative, Serum Negative (Negative)
--- NOTE | 2023-08-02 07:56 | PC.NURSE ---
pt transferred to radiology
[2023-08-02] MEDS: IOPAMIDOL-370 (76%);100ML BOTTLE 75 ML IV (08:06)
[2023-08-02] MEDS: SODIUM CHLORIDE 0.9% 10ML SYR (RAD ONLY) 10 ML IV (08:06)
--- NOTE | 2023-08-02 08:06 | PC.NURSE ---
Addendum entered by Edith Carty RN 08/02/23 08:06: radiology Original Note: pt returned from radiolog
--- NOTE | 2023-08-02 08:30 | HMH.EDGENADL ---
Discharge Plan Disposition Patient Disposition: Home, Self-Care Condition: Good Prescriptions Prescriptions: New ketorolac 10 mg tablet 10 mg PO Q8H PRN (Reason: pain) 3 Days Qty: 10 0RF No Action omeprazole 40 mg capsule,delayed release(DR/EC) 40 mg PO DAILY vortioxetine 20 mg tablet 20 mg PO DAILY levothyroxine 100 mcg tablet 100 mcg PO DAILY Referrals Follow up/Referrals: Josias Huffman MD [Primary Care Provider] - See instructions Activity Restrictions/Add. Instructions Additional Instructions/Restrictions: As we discussed, your scan shows that you have a likely ruptured ovarian cyst. We discussed possibly performing an ultrasound to further look at your ovary however with your improvement of symptoms and after our discussion we have elected to not proceed with that at this time. That being said. Please return if you experience any new or worsening symptoms or if your pain recurs because this could represent an ovarian torsion or ectopic . Clinical Impressions Clinical Impression: Ovarian cyst rupture Instructions Patient Instructions: DI for Acute Abdominal Pain Discharge ED Provider: Piero Tolliver Adult [facility] General Chief complaint: Abdominal Pain Stated complaint: abd pain Time Seen by Provider: 08/02/23 07:24 Mode of Arrival: Ambulatory Source of Information: Patient Limitations: No Limitations Description of Symptoms (Recalled from ER Triage Doc. by RN): pt presents to ED with abdominal pain. pt reports symptoms began this am approx 0630. pt reports this pain awoke her from her sleep. pt reports pain is located in lower abdomen and radiates to umbilicus. History of Present Illness HPI narrative: Patient describes periumbilical sharp abdominal pain that is nonradiating with no associated urinary symptoms. Has not had similar symptoms before. Symptoms are partially alleviated by bowel movement this morning however did have subsequent emesis. Both were nonbloody. Patient has history of , salpingectomy, per chart review, lysis of adhesions. No fevers or chills or sick contacts. Patient does have pain with ambulation as well as bumps on the car ride to work. No chest pain, no shortness of breath. No pain in her lower quadrants. Please note that above description of symptoms, in this electronic medical record under categorization of recalled from ER triage doctor by RN are reflective of an initial nursing assessment, however, is not reflective of my full history and physical exam that was personally taken and clarified. Consequentially, this preceding description of symptoms, which may include the patient's categorized chief complaint in the EMR, do not reflect my personal clinical impression, and the ultimate description of history of present illness and patient stated complaints should be deferred to this section of the note. Unless stated otherwise or congruent with this section of the note, additional signs, symptoms, or incongruence should be interpreted as inaccurate with my clinical impression. Related Data Home Medications Medication Instructions Recorded Confirmed omeprazole 40 mg capsule,delayed 40 mg PO DAILY reflex 08/15/20 04/03/22 release vortioxetine 20 mg tablet 20 mg PO DAILY Depression 08/15/20 04/03/22 levothyroxine 100 mcg tablet 100 mcg PO DAILY 03/24/22 04/03/22 Previous Rx's Medication Instructions Recorded ketorolac 10 mg tablet 10 mg PO Q8H PRN pain 3 days #10 08/02/23 tabs Allergies Allergy/AdvReac Type Severity Reaction Status Date / Time No Known Allergies Allergy Verified 08/02/23 07:25 [facility] Disclaimer: The information contained in this section may have been updated after the patient was seen, as this information can be updated by other users. Medical History Intra-abdominal adhesions Surgical History H/O tubal ligation Hx of section x3 Family History Other Diabetes Heart disease Social History Smoking Status: Current every day smoker tobacco type: e-cigarettes how long ago did patient quit smokin second hand exposure: Yes alcohol intake: never substance use type: denies use current occupational status: employed Travel in the last 8 weeks: None ROS Obtained: Yes Systems reviewed as appropriate & no additional complaints except as documented As per HPI Physical Exam General General appearance: alert and in no apparent distress Head Head exam: atraumatic and normocephalic Eye Eye exam: Present normal appearance Neck Neck exam: Present normal inspection Chest Chest inspection: Present normal inspection and symmetric chest wall rise Respiratory Respiratory exam: Present normal lung sounds bilaterally; Absent respiratory distress Cardiovascular Cardiovascular exam: Present regular rate and normal rhythm Abdominal Exam Abdominal exam: Present soft and tenderness Abdominal tenderness: Present epigastrium Neurological Exam Neurological exam: Present alert and oriented X3 Psychiatric Psychiatric exam: Present normal affect and normal mood Skin Skin exam: Present warm and dry Medical Decision Making Medical Records Medical records reviewed: Yes I reviewed the patient's medical records. Epifanio Inquiry Pt receiving controlled substance: No Vital Signs: 08/02/23 07:09 08/02/23 07:11 08/02/23 07:30 Temperature 98.2 F Temperature Source Oral Pulse Rate 111 H 98 H Pulse Rate [Left Radial] 88 Respiratory Rate 14 Blood Pressure 121/82 85/55 L Blood Pressure [Right Arm] 121/82 Blood Pressure Mean Blood Pressure Mean [Right Arm] 95 02 Sat by Pulse Oximetry 98 97 97 Oxygen Delivery Method Room Air 08/02/23 08:07 08/02/23 08:30 08/02/23 09:00 Temperature Temperature Source Pulse Rate 84 74 69 Pulse Rate [Left Radial] Respiratory Rate 20 Blood Pressure 120/85 100/52 L 109/75 L Blood Pressure [Right Arm] Blood Pressure Mean 95 68 83 Blood Pressure Mean [Right Arm] 02 Sat by Pulse Oximetry 98 98 97 Oxygen Delivery Method 08/02/23 09:14 Temperature 97.9 F Temperature Source Pulse Rate 69 Pulse Rate [Left Radial] Respiratory Rate 15 Blood Pressure 109/75 L Blood Pressure [Right Arm] Blood Pressure Mean Blood Pressure Mean [Right Arm] 02 Sat by Pulse Oximetry Oxygen Delivery Method Lab Data Lab Results 08/02/23 07:14: WBC 11.3 H, RBC 5.27, Hgb 14.9, Hct 46.7, MCV 88.6, MCH 28.3, MCHC 32.0, RDW 13.9, Plt Count 270, MPV 7.9, Neut % (Auto) 51.5, Lymph % (Auto) 41.4, Toombs % (Auto) 4.5, Eos % (Auto) 1.2, Baso % (Auto) 1.3, Neut # (Auto) 5.8, Lymph # (Auto) 4.7 H, Toombs # (Auto) 0.5, Eos # (Auto) 0.1, Baso # (Auto) 0.2, Sodium 141, Potassium 3.8, Chloride 110 H, Carbon Dioxide 24, Anion Gap 10.8, BUN 12, Creatinine 0.90, Estimated Creat Clear 112, Estimated GFR 72, Est GFR ( Amer) 87, Glucose 101 H, Calcium 9.5, Total Bilirubin 0.5, AST 22, ALT 21, Alkaline Phosphatase 59, Total Protein 7.7, Albumin 4.4, Globulin 3.3 H, Albumin/Globulin Ratio 1.3, Lipase 326 H, Serum HCG, Qual Negative 08/02/23 07:14 08/02/23 07:14 Orders (Tests/Meds): ED MEDICATIONS Discontinued Medications Generic Name Dose Route Start Last Admin Trade Name Freq PRN Reason Stop Dose Admin Lactated Ringer's 1,000 mls @ 999 mls/hr 08/02/23 07:30 08/02/23 07:36 Lactated Ringer's 1000 Ml Bag IV 08/02/23 08:30 999 mls/hr .Q1H1M ONE Administration Iopamidol 75 ml 08/02/23 08:04 08/02/23 08:06 Iopamidol-370 (76%);100ml Bottle IV 08/02/23 08:05 75 ml ONCE ONE Administration Ketorolac Tromethamine 30 mg 08/02/23 07:29 08/02/23 07:35 Ketorolac 30mg/Ml Vial IV 08/02/23 07:30 30 mg ONCE ONE Administration Ondansetron HCl 4 mg 08/02/23 07:28 08/02/23 07:35 Ondansetron 4mg/2ml Vial IV 08/02/23 07:29 4 mg ONCE ONE Administration Sodium Chloride 10 ml 08/02/23 08:04 08/02/23 08:06 Sodium Chloride 0.9% 10ml Syr (Rad Only) IV 09/01/23 08:03 10 ml NEEDED PRN Administration Maintain IV Site ORDERS Category Date Time Status CT abdomen pelvis w con Stat Cat Scan 08/02/23 07:23 Completed CBC w/Auto Diff [Complete Blood Count Auto Diff] Stat Lab 08/02/23 07:14 Completed CMP [Comprehensive Metabolic Panel] Stat Lab 08/02/23 07:14 Completed HCG Qualitative, Serum Stat Lab 08/02/23 07:14 Completed Lipase Stat Lab 08/02/23 07:14 Completed Medical Decision Narrative: Patient with history and exam per above presenting for evaluation of periumbilical acute onset abdominal pain Diagnoses considered include appendicitis, partial bowel obstruction, ovarian torsion, ectopic , among others ED workup and treatment included: ED MEDICATIONS Discontinued Medications Generic Name Dose Route Start Last Admin Trade Name Shawn PRN Reason Stop Dose Admin Lactated Ringer's 1,000 mls @ 999 mls/hr 08/02/23 07:30 08/02/23 07:36 Lactated Ringer's 1000 Ml Bag IV 08/02/23 08:30 999 mls/hr .Q1H1M ONE Administration Iopamidol 75 ml 08/02/23 08:04 08/02/23 08:06 Iopamidol-370 (76%);100ml Bottle IV 08/02/23 08:05 75 ml ONCE ONE Administration Ketorolac Tromethamine 30 mg 08/02/23 07:29 08/02/23 07:35 Ketorolac 30mg/Ml Vial IV 08/02/23 07:30 30 mg ONCE ONE Administration Ondansetron HCl 4 mg 08/02/23 07:28 08/02/23 07:35 Ondansetron 4mg/2ml Vial IV 08/02/23 07:29 4 mg ONCE ONE Administration Sodium Chloride 10 ml 08/02/23 08:04 08/02/23 08:06 Sodium Chloride 0.9% 10ml Syr (Rad Only) IV 09/01/23 08:03 10 ml NEEDED PRN Administration Maintain IV Site ORDERS Category Date Time Status CT abdomen pelvis w con Stat Cat Scan 08/02/23 07:23 Completed CBC w/Auto Diff [Complete Blood Count Auto Diff] Stat Lab 08/02/23 07:14 Completed CMP [Comprehensive Metabolic Panel] Stat Lab 08/02/23 07:14 Completed HCG Qualitative, Serum Stat Lab 08/02/23 07:14 Completed Lipase Stat Lab 08/02/23 07:14 Completed Labs were independently interpreted by me, significant for hCG serum negative, white blood cell count 11.3, no acute anemia Imaging was independently visualized and interpreted by me, significant for evidence suggestive of ruptured ovarian cyst. Please refer to radiology report for full details. My clinical impression at this time is most consistent with symptomatic ruptured ovarian cyst. I discussed with the patient further evaluation with transvaginal ultrasound and/or quantitative hCG however patient reports improvement of symptoms upon repeat evaluation and declines further workup at this time. She will return with any new or worsening symptoms. I discussed my clinical impression with patient and answered all questions. The patient was advised that persistent or worsening symptoms require further evaluation. I confirmed the patient's understanding of this discussion. Critical Care Critical Care Time Critical Care Time: No
== END 2023-08-02 09:18 | disposition home or self-care (01) ==
PROVIDERS: Emergency Provider Emergency Medicine; PCP Internal Medicine Adolescent Medicine
DX: N83.201 Unspecified ovarian cyst, right side (principal); R10.33 Periumbilical pain; F17.290 Nicotine dependence, other tobacco product, uncomplicated
CPT/HCPCS: 74177; 80053; 83690; 84703; 85025; 96361; 96374; 96375; 99284; J2405; Q9967

== ENCOUNTER → 2024-12-12 13:52 | Outpatient (CLI) | payer OTHER, SELFPAY | LOC: SL 13:53 | PROVIDERS: PCP Nurse Practitioner Family; Visit Provider Nurse Practitioner Family | DX: G47.33 Obstructive sleep apnea (adult) (pediatric) (principal); E66.9 Obesity, unspecified; G47.10 Hypersomnia, unspecified; R06.83 Snoring | CPT/HCPCS: 95806 ==